=== PATIENT | female | born 1985 | race Caucasian/White ===

== ENCOUNTER 2018-07-16 15:10 | Emergency (ER) | payer SELFPAY ==
[2018-07-16 15:16] VITALS: BP 119/71; PULSE 61; TEMP 98.5; BMI 25.1
--- NOTE | 2018-07-16 15:43 | PDOC ---
History of Present Illness - General Chief Complaint: Vaginal Bleeding Stated Complaint: CRAMPING,PAIN AND BLOOD IN URINE Time Seen by Provider: 07/16/18 15:18 History Source: Patient Exam Limitations: No Limitations - History of Present Illness Initial Comments: CHIEF COMPLAINT: 32 y/o afebrile female with no significant PMH c/o hematuria and dysuria today. HISTORY OF PRESENT ILLNESS: The patient admits she feels like she has to urinate constantly but not much comes out. She also has right side pain and had 1 episode of vomiting. She denies fever, chills, diarrhea, CP, SOB. SHe took motrin about 6 hours ago for the pain. Vital signs on arrival are within normal limits REVIEW OF SYSTEMS: GENERAL/CONSTITUTIONAL: No fever/chills. No weakness. No weight change. HEAD, EYES, EARS, NOSE AND THROAT: No change in vision. No ear pain or discharge. No sore throat. CARDIOVASCULAR: No chest pain or shortness of breath. RESPIRATORY: No cough, wheezing, or hemoptysis. GASTROINTESTINAL: 1 episode of vomiting. +right side pain. No diarrhea or constipation. GENITOURINARY: +dysuria, hematuria and increased urinary frequency MUSCULOSKELETAL: No joint or muscle swelling or pain. No neck or back pain. SKIN: No rash or easy bruising. NEUROLOGIC: No headache, vertigo, loss of consciousness, or loss of sensation. PHYSICAL EXAM: GENERAL: The patient is awake, alert, and fully oriented, in no acute distress.. ABDOMEN: Soft, non-distended, TTP of right flank, no hepatomegaly or splenomegaly, no masses. BACK: No CVA TTP b/l. EXTREMITIES: Normal range of motion, no edema. NEUROLOGICAL: Normal speech, normal gait. CN II-XII grossly intact. SKIN: Warm, dry, normal turgor, no rashes or lesions noted.4350/2 Past History - Past Medical History Allergies/Adverse Reactions: Allergies Allergy/AdvReac Type Severity Reaction Status Date / Time No Known Allergies Allergy Verified 07/16/18 15:13 Home Medications: Ambulatory Orders No Home Medications 0 dose .ROUTE UTDICT 11/28/12 Sulfamethoxazole/Trimethoprim [Bactrim Ds -] 1 tab PO BID #14 tablet 07/16/18 Asthma: No Cancer: No Cardiac Disorders: No COPD: No Diabetes: No HTN: No Seizures: No Thyroid Disease: No - Suicide/Smoking/Psychosocial Hx Smoking Status: No Smoking History: Never smoked Have you smoked in the past 12 months: No Number of Cigarettes Smoked Daily: 0 Hx Alcohol Use: No Drug/Substance Use Hx: No Substance Use Type: None Hx Substance Use Treatment: No *Physical Exam - Vital Signs Last Vital Signs Temp Pulse Resp BP Pulse Ox 98.5 F 61 18 119/71 100 07/16/18 15:13 07/16/18 15:13 07/16/18 15:13 07/16/18 15:13 07/16/18 15:13 Moderate Sedation - Procedure Monitoring Vital Signs: Procedure Monitoring Vital Signs Temperature 98.5 F 07/16/18 15:13 Pulse Rate 61 07/16/18 15:13 Respiratory Rate 18 07/16/18 15:13 Blood Pressure 119/71 07/16/18 15:13 O2 Sat by Pulse Oximetry (%) 100 07/16/18 15:13 Medical Decision Making - Medical Decision Making A/P: 32 y/o female with UTI vs renal colic vs kidney stone. Plan is as follows : 1. UA/culture/hcg hcg - negative ordered IM toradol Spiral CT IMPRESSION: Mild bladder wall edema. Possible cystitis. Gave patient the results. She does feel better after toradol. Will d/c to home with rx for bactrim. Instructed her to drink plenty of fluids and take ibuprofen for pain. The patient verbalizes understanding of all instructions, has no further questions and is awaiting discharge. *DC/Admit/Observation/Transfer Diagnosis at time of Disposition: Cystitis - Discharge Dispostion Disposition: HOME Condition at time of disposition: Good - Prescriptions Prescriptions: Sulfamethoxazole/Trimethoprim [Bactrim Ds -] 1 tab PO BID #14 tablet - Referrals - Patient Instructions Printed Discharge Instructions: DI for Acute Cystitis Additional Instructions: Discharge Instructions: -You have an infection in your bladder -A prescription for antibiotics has been sent to your pharmacy; please take entire 7 days -Take 600mg of over the counter ibuprofen for pain if needed every 6 hours with food -Drink at least 64oz of water daily Print Language: MAORI - Post Discharge Activity
[2018-07-16 16:01] LABS: HCG,QUALITATIVE URINE Negative
[2018-07-16] MEDS ORDERED: KETOROLAC TROMETHAMINE 60 MG/2 ML VIAL IM ONE (16:04)
[2018-07-16] MEDS ORDERED: KETOROLAC TROMETHAMINE 60 MG/2 ML VIAL ONE (16:11)
[2018-07-16 16:46] LABS: URINE APPEARANCE SLCLOUDY; URINE BILIRUBIN NEGATIVE (<2.0 mg/dL); URINE COLOR YELLOW; URINE GLUCOSE (UA) NEGATIVE (NEGATIVE); URINE KETONE TRACE (NEGATIVE); URINE LEUK ESTERASE TRACE (NEGATIVE); URINE NITRITE NEGATIVE (NEGATIVE); URINE PROTEIN 2+ (NEGATIVE); URINE UROBILINOGEN NEGATIVE mg/dL (0.2-1.0)
[2018-07-16 16:52] LABS: EPI CELLS RARE /HPF (FEW); URINE MUCUS RARE
== END 2018-07-16 18:33 | disposition home or self-care (01) ==
LOC: JER 15:10
PROC: 3E0233Z Introduction of Anti-inflammatory into Muscle, Percutaneous Approach (ICD-10-PCS; principal; 2018-07-16)
DX: N30.91 Cystitis, unspecified with hematuria (principal)
CPT/HCPCS: 74176; 81003; 81015; 84703; 87086; 87186; 99283-25

== ENCOUNTER 2019-06-24 16:03 | Emergency (ER) | payer OTHER ==
[2019-06-24 16:12] VITALS: BP 124/75; PULSE 55; TEMP 97.9; BMI 26.0
--- NOTE | 2019-06-24 17:16 | PDOC ---
History of Present Illness - General Chief Complaint: Pain Stated Complaint: LT KNEE PAIN Time Seen by Provider: 06/24/19 16:27 History Source: Patient Exam Limitations: No Limitations - History of Present Illness Initial Comments: 06/24/19 17:16 Patient is a [employer] teacher, and states on Tuesday had onset of swelling, pain , ecchymosis and mild instability to her left knee. Is uncertain as to exact injury but states has been using ice and elevating since that time with minimal resolve. Denies fever, redness Occurred: reports: last week Severity: reports: moderate Pain Location: reports: lower extremity (left knee ) Modifying Factors: improves with: cold therapy Loss of Consciousness: no loss of consciousness Associated Symptoms (Fall): denies symptoms Past History - Travel Traveled outside of the country in the last 30 days: No Close contact w/someone who was outside of country & ill: No - Past Medical History Allergies/Adverse Reactions: Allergies Allergy/AdvReac Type Severity Reaction Status Date / Time No Known Allergies Allergy Verified 06/24/19 16:12 Home Medications: Ambulatory Orders No Home Medications 0 dose .ROUTE UTDICT 11/28/12 Sulfamethoxazole/Trimethoprim [Bactrim Ds -] 1 tab PO BID #14 tablet 07/16/18 Sulfamethoxazole/Trimethoprim [Bactrim Ds -] 1 tab PO BID #14 tablet 07/16/18 Ibuprofen 400 mg PO Q6H PRN #30 tablet 06/24/19 Asthma: No Cancer: No Cardiac Disorders: No COPD: No Diabetes: No HTN: No Seizures: No Thyroid Disease: No - Psycho Social/Smoking Cessation Hx Smoking Status: No Smoking History: Never smoked Have you smoked in the past 12 months: No Number of Cigarettes Smoked Daily: 0 Hx Alcohol Use: No Drug/Substance Use Hx: No Substance Use Type: None Hx Substance Use Treatment: No Review of Systems - Review of Systems Able to Perform ROS?: Yes Is the patient limited Nepali proficient: Yes Constitutional: Yes: Symptoms Reported, See HPI, Malaise HEENTM: No: Symptoms Reported Musculoskeletal: Yes: Symptoms Reported, See HPI, Joint Pain, Joint Swelling, Muscle Pain Integumentary: Yes: Symptoms Reported, See HPI, Bruising All Other Systems: Reviewed and Negative *Physical Exam - Vital Signs Last Vital Signs Temp Pulse Resp BP Pulse Ox 97.9 F 55 L 18 124/75 100 06/24/19 16:10 06/24/19 16:10 06/24/19 16:10 06/24/19 16:10 06/24/19 16:10 - Physical Exam General Appearance: Yes: Nourished, Appropriately Dressed, Apparent Distress, Mild Distress HEENT: positive: LISA, Normal ENT Inspection, TMs Normal, Pharynx Normal Neck: positive: Supple. negative: Tender, Lymphadenopathy (R) Respiratory/Chest: positive: Lungs Clear Gastrointestinal/Abdominal: positive: Soft. negative: Tender Musculoskeletal: positive: Normal Inspection, Decreased Range of Motion Extremity: positive: Normal Capillary Refill, Tender (Swelling, tenderness, and positive anterior drawer sign to left knee. Has ecchymosis noted to the medial aspect with tenderness posterior fossa and medial aspect of knee.). negative: Normal Inspection, Normal Range of Motion Integumentary: positive: Normal Color, Ecchymosis, Bruising Neurologic: positive: private client advisor II-XII NML intact, Fully Oriented, Alert, Normal Mood/ Affect, Normal Response, Motor Strength / ED Progress Note - Progress Note Progress Note: 06/24/19 17:21 Left knee sprain, probable ACL injury. Immobilizer placed and will refer to orthopedist Medical Decision Making - Medical Decision Making 06/24/19 17:15 Suspect ACL injury. Immobilizer placed, patient understands need for follow-up with orthopedist for further testing and/or treatment. Discharge - Discharge Information Problems reviewed: No Clinical Impression/Diagnosis: Left knee sprain Condition: Stable Disposition: HOME - Admission No - Additional Discharge Information Prescriptions: Ibuprofen 400 mg PO Q6H PRN #30 tablet PRN Reason: Pain - Follow up/Referral Referrals: Rashard Shannon MD [Staff Physician] - - Patient Discharge Instructions Patient Printed Discharge Instructions: DI for Knee Sprain Additional Instructions: Rest, ice to area on and off for 15 minutes 4-6 times a day Avoid heavy lifting or exercise until pain and swelling is resolved or until further directed Keep area highly elevated to reduce swelling Use splints/Jas wrap as directed Followup with orthopedist in one to 2 days if not improving, if significantly improved may wait one week for followup with orthopedist May use ibuprofen every 6 hours as needed for pain - Post Discharge Activity Work/Back to School Note: Back to Work
== END 2019-06-24 17:17 | disposition home or self-care (01) ==
LOC: JERFT 16:03
PROC: 2W3RXYZ Immobilization of Left Lower Leg using Other Device (ICD-10-PCS; principal; 2019-06-24)
DX: S83.8X2A Sprain of other specified parts of left knee, initial encounter (principal); X58.XXXA Exposure to other specified factors, initial encounter; Y93.9 Activity, unspecified; Y92.89 Other specified places as the place of occurrence of the external cause; Y99.8 Other external cause status
CPT/HCPCS: 29530; 99282-25

== ENCOUNTER 2021-06-01 06:20 | Inpatient (IN) | payer OTHER ==
[2021-06-01 09:02] LABS: BASO % 0.4 % (0-2.0); EOS % 3.8 % (0-4.5); HEMATOCRIT 30.4 % (32.4-45.2); HEMOGLOBIN 10.3 GM/dL (10.7-15.3); LYMPH % 18.8 % (8-40); MCHC 33.8 g/dl (32.0-36.0); MEAN CELL VOLUME 76.9 fl (80-96); MEAN PLT VOLUME 10.6 fl (7.5-11.1); MONO % 5.8 % (3.8-10.2); NEUT % 71.2 % (42.8-82.8); PLATELET COUNT 166 10^3/uL (134-434); RBC 3.95 M/mm3 (3.60-5.2); RDW 16.2 % (11.6-15.6); RETICULOCYTES 1.67 % (0.5-1.5)
[2021-06-01 09:31] LABS: URIC ACID 5.1 mg/dL (2.6-7.2)
[2021-06-01] MEDS ORDERED: OXYTOCIN 10 UNITS/ML VIAL ONE (12:02)
[2021-06-01] MEDS ORDERED: IBUPROFEN 600 MG TABLET (FP) PO PRN (12:12)
[2021-06-01] MEDS ORDERED: ACETAMINOPHEN 325 MG TABLET (FP) PO PRN (12:12)
[2021-06-01] MEDS ORDERED: BENZOCAINE 28 GM HEMORRHOIDAL OINTMENT TP PRN (12:12)
[2021-06-01] MEDS ORDERED: BISACODYL 10 MG SUPP.RECT RC PRN (12:12)
[2021-06-01] MEDS ORDERED: METHYLERGONOVINE MALEATE 0.2 MG/1 ML AMP IM PRN (12:12)
[2021-06-01] MEDS ORDERED: WITCH HAZEL 50% (TUCKS) 40 PAD/JAR PAD TP PRN (12:12)
[2021-06-01] MEDS ORDERED: BENZOCAINE 20% 57 GM BOTTLE TP PRN (12:12)
[2021-06-01] MEDS ORDERED: OXYTOCIN 10 UNITS/ML VIAL IM ONE (12:12)
[2021-06-01] MEDS ORDERED: IBUPROFEN 600 MG TABLET (FP) PO ONE (12:41)
[2021-06-01] MEDS: IBUPROFEN 600 MG TABLET (FP) PO PRN ×2 (12:45→17:47)
[2021-06-01 13:37] VITALS: BMI 31.6
[2021-06-02] MEDS: IBUPROFEN 600 MG TABLET (FP) PO PRN ×2 (00:47→19:38)
[2021-06-02] MEDS: ACETAMINOPHEN 325 MG TABLET (FP) PO PRN ×4 (03:12→19:38)
[2021-06-02] MEDS: LABETALOL HCL 200 MG TABLET (FP) PO SCH ×3 (04:10→21:22)
[2021-06-02 05:51] LABS: BASO % 0.4 % (0-2.0); HEMATOCRIT 29.1 % (32.4-45.2); HEMOGLOBIN 9.7 GM/dL (10.7-15.3); LYMPH % 22.1 % (8-40); MCH 26.1 pg (25.7-33.7); MCHC 33.5 g/dl (32.0-36.0); MEAN PLT VOLUME 10.8 fl (7.5-11.1); MONO % 6.8 % (3.8-10.2); NEUT % 68.7 % (42.8-82.8); PLATELET COUNT 163 10^3/uL (134-434); RBC 3.73 M/mm3 (3.60-5.2); RDW 15.7 % (11.6-15.6); WHITE BLOOD COUNT 7.8 K/mm3 (4.0-10.0)
[2021-06-02 06:10] LABS: CALCIUM 8.7 mg/dL (8.5-10.1)
[2021-06-02 06:12] LABS: ALBUMIN 2.5 g/dl (3.4-5.0); BLOOD UREA NITROGEN 16.6 mg/dL (7-18)
[2021-06-02 06:14] LABS: CREATININE 0.7 mg/dL (0.55-1.3)
[2021-06-02 06:15] LABS: BILIRUBIN,TOTAL 0.4 mg/dL (0.2-1)
[2021-06-02 06:16] LABS: TOT PROT 6.5 g/dl (6.4-8.2)
[2021-06-02] MEDS: PRENATAL VITAMINS W/ FOLIC ACID TABLET (FP) PO SCH (09:46)
[2021-06-02] MEDS ORDERED: DIPHTH,PERTUSS(ACELL),TET 0.5 ML DISP.SYRIN IM ONE (10:00)
[2021-06-02] MEDS ORDERED: SENNOSIDES/DOCUSATE COMBO (SENNA PLUS) TABLET (UD) PO PRN (22:00)
[2021-06-03] MEDS: IBUPROFEN 600 MG TABLET (FP) PO PRN ×2 (02:07→08:29)
[2021-06-03 11:19] VITALS: BP 129/72; PULSE 58; TEMP 97.8
[2021-06-03] MEDS: LABETALOL HCL 200 MG TABLET (FP) PO SCH (11:45)
[2021-06-03] MEDS: PRENATAL VITAMINS W/ FOLIC ACID TABLET (FP) PO SCH (11:45)
== END 2021-06-03 12:35 | disposition home or self-care (01) | DRG 560 ==
LOC: JDEL 06:20 → J3WN 11:55 → JLDR 12:09 → J3W 14:05
PROVIDERS: ADMIT Obstetrics & Gynecology; ATTEND Obstetrics & Gynecology
PROC: 10E0XZZ Delivery of Products of Conception, External Approach (ICD-10-PCS; principal; 2021-06-01)
DX: O13.4 Gestational [pregnancy-induced] hypertension without significant proteinuria, complicating childbirth (principal); Z3A.37 37 weeks gestation of pregnancy; Z37.0 Single live birth
CPT/HCPCS: 36415; 59025; 59409; 80053; 82570; 82977; 83010; 84156; 84450; 84460; 84550; 85025; 85045; 86780; 86850; 86900; 86901; 90715; C9803; U0003; U0005

== ENCOUNTER 2024-09-29 12:36 | Emergency (ER) | payer OTHER ==
[2024-09-29 12:45] VITALS: BP 106/50; PULSE 52; RESP 18; TEMP 98.2; BMI 28.5
[2024-09-29] MEDS ORDERED: LIDOCAINE 4% PATCH TP ONE (13:23)
[2024-09-29] MEDS ORDERED: KETOROLAC TROMETHAMINE 30 MG/1 ML VIAL ONE (13:23)
[2024-09-29] MEDS ORDERED: ACETAMINOPHEN 500 MG TABLET (FP) ONE (13:23)
[2024-09-29] MEDS: ACETAMINOPHEN 500 MG TABLET (FP) PO ONE (13:32)
[2024-09-29] MEDS: KETOROLAC TROMETHAMINE 30 MG/1 ML VIAL IM ONE (13:32)
[2024-09-29] MEDS: LIDOCAINE 4% PATCH TP ONE (13:32)
[2024-09-29] MEDS ORDERED: LIDOCAINE PATCH REMOVAL MC SCH (22:00)
== END 2024-09-29 13:38 | disposition home or self-care (01) ==
LOC: JER 12:36 → JERFT 12:36
PROC: 3E0233Z Introduction of Anti-inflammatory into Muscle, Percutaneous Approach (ICD-10-PCS; principal; 2024-09-29)
DX: M54.41 Lumbago with sciatica, right side (principal); R20.2 Paresthesia of skin
CPT/HCPCS: 99284-25